=== PATIENT | female | born 1985 | race Caucasian/White ===

== ENCOUNTER 2024-11-06 10:16 | Outpatient (AMB) | payer OTHER, SELFPAY ==
--- NOTE | 2024-11-06 10:20 | MHC.PC.OV ---
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 Patient is experiencing Achilles pain on her left foot. Allergies Seasonal Allergies Allergy (Verified 11/06/24 10:24) Congestion Tobacco use date assessed: 11/06/24 Dental Screening Dental Screen Date: 11/06/24 Did you have a dental visit in the last 12 months?: Yes Did you have a dental problem in the last 6 months where you did not have access to dental care?: No Was dental information given to patient?: Patient has dentist HPI HPI Comments History of Present Illness Details This is a 39-year-old female with a past medical history of epilepsy, GERD, chronic abdominal pain, depression with anxiety, alcohol abuse in remission and chronic left but pain presenting to establish care. She is due for a physical. She has Achilles tendinitis on the left side. This has been going on for 1 year and a half. Previous evaluation at [facility] included x-ray. She ices and takes [id number] medication or applies tiger balm as needed which provides only temporary relief. 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 I prescribed naproxen twice daily as needed with food. I cautioned her not to use this frequently since it could exacerbate her stomach issues and can be nephrotoxic. She will continue conservative measures, and I referred her to Podiatry. She would like to see Podiatry before initiating physical therapy. She was diagnosed with epilepsy at age [age] years old. Her last seizure was at age [age] years old. She is followed by [facility]. She is on Keppra chronically. She has a history of depression and anxiety. She was recently placed on nortriptyline by her lamp mechanic at [facility], Dr. Fleming, due to chronic abdominal pain exacerbated by anxiety. She also has a history of GERD. She takes a probiotic. Last year she had an ultrasound and EGD. She had a colonoscopy 2 years ago. She also has a history of esophageal stricture. Endorses history of alcohol abuse in remission. For about 5 years she was having 6 or 7 alcoholic beverages every other day. She had no withdrawal symptoms, and she did not require addiction Medicine assistance to stop drinking. She does not see a therapist or psychiatrist, but she would like to continue nortriptyline treatment for now since she notices improvement in anxiety. She is considering increasing the dosage. If this does not work out she will follow up with our office for further management of anxiety and depression. Her OBGYN is at [facility] on [facility] in [place]. She is up-to-date. Reports mammograms are also up-to-date, and her insulator technician orders them. She will get Tdap vaccine at the pharmacy. Declines today. She has a history of high cholesterol in her family, and she would like to have this checked. Ordered. ROS: Constitutional: No unexplained weight loss, fever, chills, fatigue or night sweats. Eyes: No vision changes, blurry vision, double vision, eye pain, eye redness, eye discharge. ENT: No hearing loss, sneezing, congestion, runny nose or sore throat. Respiratory: No shortness of breath, cough or sputum production. Cardiovascular: No chest pain, chest pressure or chest discomfort. No palpitations or pedal edema. Gastrointestinal: No blood in stools, anorexia, diarrhea or vomiting. See HPI Genitourinary: No dysuria, hematuria, urinary frequency. Neurologic: No headache, dizziness, syncope, unilateral weakness, ataxia, numbness or tingling in the extremities. Musculoskeletal: See HPI Hematologic/Lymphatics: No bleeding or bruising. No painful lymph nodes. Skin: No rash. Patient sees the [facility] for skin exams, and she has an appointment in January. She has a mole on the left scalp line which has gotten a little bigger over the past year, but she has not appreciated other changes. Denies history of skin cancer. Endocrine: No cold or heat intolerance. No polyuria or polydipsia. Psychiatric: see HPI Physical exam: Constitutional: Alert, in no distress. Head: Normocephalic. Eyes: Pupils are equal, round and reactive to light. Extraocular muscles intact. Ear, Nose and Throat: Canals clear. TMs normal. Normal nasal mucosa. No nasal discharge. No oral lesions. Neck: Supple, Full range of motion. No lymphadenopathy. No palpable thyroid masses. Respiratory: Clear to auscultation. Cardiovascular: S1 S2 regular. No murmurs. Gastrointestinal: Abdomen soft, non-tender, non-distended. Normal bowel sounds. No palpable masses. Neurologic: No focal neurological deficits. Symmetric patellar reflexes. Moves all extremities spontaneously. Sensation intact bilaterally. Skin: 3 mm triagularly shaped brown nevus on the left scalp line, not raised Musculoskeletal: No gross deformities. Mild tenderness at the insertion of the Achilles tendon on the left side. Extremities: Warm and well perfused. No clubbing, cyanosis or edema. Intact peripheral pulses bilaterally. Psychiatric: Normal mood and affect [facility] Medical History (Updated 11/06/24 @ 11:16 by TOMAS Hernandez) GERD (gastroesophageal reflux disease) Epilepsy Left Achilles tendinitis Depression with anxiety Alcohol abuse, in remission Chronic abdominal pain Esophageal stricture Screening for cardiovascular condition Routine physical examination Family History (Updated 11/06/24 @ 10:29 by Stephanie Garvin MA) Mother Anxiety Depression Substance abuse Alcoholism Father Substance abuse Alcoholism Other FHx: mental illness Social History (Updated 11/06/24 @ 10:30 by Stephanie Garvin MA) Housing: House Alcohol intake: current Patient Tobacco Use Status: Former Tobacco user Cigarette Packs Per Day: 1 Cigarettes Per Day: 3 Years Smoked: 20 e-Cigarette/Vaping Use: Currently Using Second Hand Smoke Exposure: No service: No Current occupational status: employed Current occupation: [employer] [place], [place] Current occupational exposures/hazards: No Cognitive needs: No Hearing needs: No Vision needs: No Questionnaire PHQ-9 Over the last 2 weeks, how often have you been bothered by any of the following problems? 1. Little interest or pleasure in doing things: not at all 2. Feeling down, depressed, or hopeless: not at all 3. Trouble falling or staying asleep, or sleeping too much: not at all 4. Feeling tired or having little energy: not at all 5. Poor appetite or overeating: not at all 6. Feeling bad about yourself - or that you are a failure or have let yourself or your family down: not at all 7. Trouble concentrating on things, such as reading the newspaper or watching television: not at all 8. Moving or speaking so slowly that other people could have noticed. Or the opposite - being so fidgety or restless that you have been moving around a lot more than usual: not at all 9. Thoughts that you would be better off or of hurting yourself in some way: not at all Total score: 0 Depression Screening Interpretation: Negative Depression Screening Done: Yes 10837 - PHQ-9 Billing: Yes Source: Developed by Drs. Froilan Toussaint, Indigo Diaz, Darek Cosby and colleagues, with an educational navin from [employer]. Thrive Questionnaire Date Thrive assessed: 11/06/24 I am a: Patient What is your living situation today?: I have a steady place to live Within the past 12 months, did the food you bought not last and you didn't have the money to get more?: Never true Within the past 12 months, did you worry whether your food would run out before you got money to buy more?: Never true Do you have trouble paying for medicines?: No Do you have trouble getting transportation to medical appointments?: No Do you have trouble paying your heating and electricity bill?: No Do you have trouble taking care of your child, family member or friend?: No Do you have trouble with day-to-day activities such as bathing, preparing meals, shopping, managing finances, etc.?: No Are you currently unemployed and looking for a job?: No Are you interested in more education?: No Please select the resources that you would like help with: None Currently or been in a relationship where the following occur: No concerns reported THRIVE Score: 0 AUDIT C Alcohol Use Questionnaire (AUDIT-C) 1. How often do you have a drink containing alcohol?: 2-4 times a month 2. How many drinks containing alcohol do you have on a typical day when you are drinking?: 3 or 4 3. How often do you have six or more drinks on one occasion?: Less than monthly Total Score: 4 REZA-7 AMB Questionnaire REZA-7 Date REZA - 7 assessed: 11/06/24 Feeling nervous, anxious, or on edge: 1 = Several days Not being able to stop or control worryin = Several days Worrying too much about different things: 1 = Several days Trouble relaxin = Several days Being so restless that it is hard to sit still: 1 = Several days Becoming easily annoyed or irritable: 1 = Several days Feeling afraid as if something awful might happen: 1 = Several days Total REZA-7 score (0-4 normal; 5-9 mild; 10-14 moderate; 15-21 severe): 7 Source: Developed by Drs. Froilan Toussaint, Indigo Diaz, Darek Cosby and colleagues, with an educational navin from [employer]. REZA-7 Assessment Billing REZA-7 Assessment Tool: REZA-7 Assessment 12340 Physical exam (Primary Care) Vital Signs: Last Vital Signs Temp 98.4 F 11/06/24 10:30 Pulse 68 11/06/24 10:30 BP 106/68 11/06/24 10:30 Pulse Ox 98 11/06/24 10:30 Oxygen Delivery Method Room Air 11/06/24 10:30 BMI result Body Mass Index 21.3 Tobacco/Smoking Status: Tobacco use Status Tobacco use date assessed 11/06/24 11/06/24 10:33 Patient Tobacco Use Status Former Tobacco user 11/06/24 10:33 e-Cigarette/Vaping Use Currently Using 11/06/24 10:33 PHQ-9: PHQ-9 Score PHQ-9: Total score 0 11/06/24 10:33 Depression Screening Interpretation: Negative Thrive Assessment: Date of Thrive Assessment Date Thrive assessed 11/06/24 11/06/24 10:33 Currently or been in a relationship where the following occur: No concerns reported Coding Level of Care Code New Pt Level 3 (33457) New Pt Prev Care 40-64y(83807) Diagnoses Gastroesophageal reflux disease K21.9 Chronic abdominal pain R10.9; G89.29 Alcohol abuse, in remission F10.11 Depression with anxiety F41.8 Left Achilles tendinitis M76.62 Routine physical examination Z00.00 Epilepsy G40.909 Additional Codes REZA-7 Assessment Billing - REZA-7 Assessment Tool: REZA-7 Assessment 46126 ([id number]) PHQ-9 - 40822 - PHQ-9 Billing: Yes ([id number]) Assessment & Plan Assessment & Plan (1) Gastroesophageal reflux disease: Code(s): K21.9 - Gastro-esophageal reflux disease without esophagitis Category: Medical Plan: Continue recommendations per GI. Avoid spicy and acidic foods. She stopped drinking alcohol. (2) Chronic abdominal pain: Code(s): R10.9 - Unspecified abdominal pain; G89.29 - Other chronic pain Category: Medical Plan: Followed by GI. Recently started on nortriptyline with improvement. (3) Alcohol abuse, in remission: Code(s): F10.11 - Alcohol abuse, in remission Category: Medical Plan: Patient is currently sober and feels well supported by family. (4) Depression with anxiety: Code(s): F41.8 - Other specified anxiety disorders Category: Medical Plan: See HPI. (5) Left Achilles tendinitis: Code(s): M76.62 - Achilles tendinitis, left leg Category: Medical Plan: See HPI. (6) Routine physical examination: Code(s): Z00.00 - Encounter for general adult medical examination without abnormal findings Category: Medical Plan: Patient is seen today for a routine physical. As part of this visit we reviewed the following issues, which are considered and essential part of preventative health in this age group: - Breast Cancer screening - Annual Detail Drafter exam - Blood pressure screening annually - Cholesterol screening - Osteoporosis prevention including calcium/vitamin D intake, weight bearing exercise & smoking cessation - Nutritional and exercise counseling - Counseling of injury prevention including fire prevention, smoke alarms and seat belt usage - Screening for depression - Prevention of and/or testing for infectious diseases declined - Education about skin cancer - Recommendations about immunizations - Recommendation of an eye exam - Screening for substance abuse (7) Epilepsy: Code(s): G40.909 - Epilepsy, unspecified, not intractable, without status epilepticus Category: Medical Plan: Continue management per Neurology with Cheryl. Plan Follow up in 1 year for annual physical exam Orders: Orders TSH reflex Free T4 Today K21.9 - Gastro-esophageal reflux disease without esophagitis, Z00.00 - Encounter for general adult medical examination without abnormal findings, Z13.6 - Encounter for screening for cardiovascular disorders Comprehensive Met. Panel Today K21.9 - Gastro-esophageal reflux disease without esophagitis, Z00.00 - Encounter for general adult medical examination without abnormal findings, Z13.6 - Encounter for screening for cardiovascular disorders Lipid Panel Today E78.5 - Hyperlipidemia, unspecified, K21.9 - Gastro-esophageal reflux disease without esophagitis, Z00.00 - Encounter for general adult medical examination without abnormal findings, Z13.6 - Encounter for screening for cardiovascular disorders Complete Blood Count no Diff Today K21.9 - Gastro-esophageal reflux disease without esophagitis, Z00.00 - Encounter for general adult medical examination without abnormal findings, Z13.6 - Encounter for screening for cardiovascular disorders Medications: New naproxen 500 mg PO BID PRN 30 tabs 1RF pain
[2024-11-06 10:30] VITALS: BP 106/68; PULSE 68; TEMP 36.9; O2SAT 98; BMI 21.3
--- OUTSIDE RECORDS SUMMARY | 2024-11-06 11:38 | XMS_ITS | Data Portability ---
Author Organization [place] - [facility], Allergy Address [address] [address] Care Team Providers Care Warehouse Representative Name Role Phone WARRENMIRA Primary Care Provider [phone] Assessment Encounter Date Assessment Date Assessment LastModified by Organization Details LastModified Time 06/05/2024 06/05/2024 The patient has significant allergies. We discussed lifestyle modifications, medical therapy versus immunotherapy. The patient is an excellent candidate for immunotherapy with SCIT. She trialed SLIT for 3 months, but unfortunately discontinued because she didn't notice improvement. We discussed that partial treatment will not result in success of therapy. This is at least a 3-5 year commitment and symptoms are not expected to improve quickly. They will need to followup with every 6 months to determine their compliance and success. They are interested in proceeding with immunotherapy and will contact our office to schedule. I have prescribed an epi pen and instructed them to bring it with them the first day of their therapy to be certain that they are comfortable with its use. While they are in therapy they may continue to use antihistamine allergy medications as well as topical nasal sprays to help manage their symptoms. Recommend restarting intranasal Azelastine two sprays twice daily. Will order basic food allergy testing per patient request. [email or web address] Not available 06/05/2024 13:26:43 Plan of Treatment Reminders Order Date Submit Date Provider Last Modified By Organization Details Last Modified Time Details Appointments None record ed. Lab rice ige, serum 2024 025 VISHAL [facility] (Centralized Electronic Ordering - All Locations), Patient Can Go To The Location Of Their Choice, [id number] 11:16:58 soybea n ige, serum 2024 025 WILEY [facility] (Centralized Electronic Ordering - All Locations), Patient Can Go To The Location Of Their Choice, 5 11:16:57 egg white ige, serum 2024 025 [facility]), Patient Can Go To The Location Of Their Choice, 11:16:56 milk ige, serum 2024 025 [facility] (Centralized Electronic Ordering - All Locations), Patient Can Go To The Location Of Their Choice, 5 17:42:52 wheat ige, serum 2024 WI[facility]), Patient Can Go To The Location Of Their Choice, 11:16:57 Referral None record ed. Procedures allerg en immuno therap y; multip le inject ions (PROC) 2024 [email or web address] Not available 11:18:00 Surgeries None record ed. Imaging None record ed. Medication Orders azelas keisha 137 mcg (0.1 %) nasal spray 2024 [email or web address] Not available 13:30:11 epinep hrine 0.3 mg/0.3 mL inject ion, auto-i njecto r 2024 VISHAL Not available 09:54:51 Patient TargetsNo targets recorded. Patient InstructionsNo instructions recorded. Reason for Referral None Reported. Results Created Date Observation Date Name Description Value Unit Range Abnormal Flag Note LastModifiedBy Organization Detail LastModifiedTime 06/13/1906/13/2024 IGE MILK COMPO NENT PROFI LE class description Commen t Level s of Speci fic IgE Class Descr iptio n of Class ----- ----- ----- ----- ----- -- ----- ----- ----- ----- ----- < 0.10 0 Negat katy 0.10 - 0.31 0/I Equiv ocal/ Low 0.32 - 0.55 I Low 0.56 - 1.40 II Moder ate 1.41 - 3.90 III High 3.91 - 19.00 IV Very High 19.01 - 100.0 0 V Very High >100. 00 Very High Not Available [facility] [address] [place], [address], 06/16/2024 11:16:55 06/13/19 25 06/16/2024 IGE MILK COMPO NENT PROFI LE I954-ZgH alpha lactalbumin <0.10 kU/L class 0 Not Available [facility] [address] [place], [address], 06/16/2024 11:16:55 06/13/19 25 06/16/2024 IGE MILK COMPO NENT PROFI LE J817-VtP beta lactoglobuli n <0.10 kU/L class 0 Not Available [facility] [address] [place], [address], 06/16/2024 11:16:55 06/13/19 25 06/16/2024 IGE MILK COMPO NENT PROFI LE A272-UuW casein <0.10 kU/L class 0 Not Available [facility] [address] [place], [address], 06/16/2024 11:16:55 06/13/19 25 06/16/2024 F001- IGE EGG WHITE U131-AwN egg white <0.10 kU/L class 0 Not Available [facility] [address] [place], [address], 06/16/2024 11:16:56 06/13/19 25 06/16/2024 F014- IGE SOYBE AN P801-SdP soybean <0.10 kU/L class 0 Not Available [facility] [address] [place], [address], 06/16/2024 11:16:56 06/13/1906/16/2024 F004- IGE WHEAT J073-JmI wheat <0.10 kU/L class 0 Not Available [facility] [address] [facility], [place], [address], 06/16/2024 11:16:57 06/13/1906/16/2024 F009- IGE RICE U977-UvX rice <0.10 kU/L class 0 Not Available [facility] [address] [facility], [place], [address], 06/16/2024 11:16:58 Result Notes None recorded. Problems Name Problem SNOMED Code Status Onset Date Resolution Date Notes Provider Name and Address Organization Details Recorded Time Cough 32389764 Active 2022 Cough; Note: Date Diagnosed : 06/09/2022 5:06 PM (R05) Not Available [facility] 4 03:12:28 Respirator y finding 698597485 Active 2019 Feeling of foreign body in throat; Note: Date Diagnosed : 08/26/2019 2:57 PM (R09.89) Not Available [facility] 4 03:12:29 Cardiovasc ular finding 644352948 Active 2019 Feeling of foreign body in throat; Note: Date Diagnosed : 08/26/2019 2:57 PM (R09.89) Not Available [facility] 4 03:12:29 Tobacco user 054878360 Active 2022 Tobacco use; Note: Date Diagnosed : 01/12/2023 2:33 PM (Z72.0) Not Available [facility] 4 03:12:28 Allergic rhinitis 00364466 Active 2022 Other allergic rhinitis; Note: Date Diagnosed : 08/14/2022 8:45 AM (J30.89) Not Available [facility] 4 03:12:30 Chronic pharyngiti s 330528 Active 2019 Chronic pharyngit is; Note: Date Diagnosed : 11/20/2019 10:24 AM (J31.2) Not Available [facility] 03:12:28 Problem Notes None recorded. Medical Equipment None Reported. Medications Name Sig Start Date Stop Date Status Note LastModified by Organization Details LastModified Time levetirac etam 500 mg tablet TAKE 1 AND 1/2 TABLETS BY MOUTH TWICE DAILY active Not Available Not Available No t Available ondansetr on HCl 4 mg tablet TAKE 1 TABLET BY MOUTH EVERY 8 HOURS FOR UP TO 10 DAYS NEEDED FOR NAUSEA active Not Available Not Available No t Available omeprazol e 40 mg capsule,d elayed release active Not Available Not Available Not Available famotidin e 20 mg tablet Take 1 tablet by mouth twice a day 06/02 completed Medicati on ID: [id number] D uration Value: 30 Brand Name: famotidi ne Send Method: E-Prescr ibed Sub s Allowed: subs OK Medic ationGen ericName : famotidi ne Not Available Not Available Not Available omeprazol e 20 mg capsule,d elayed release TAKE 1 CAPSULE BY MOUTH TWICE DAILY BEFORE MEALS active Not Available Not Available No t Available mont[address] 10 mg tablet 08/14 completed Medicati on ID: [id number] D uration Value: 30 Brand Name: monteluk ast Send Method: E-Prescr ibed Sub s Allowed: subs OK Speci al Instruct ion: TK 1 T PO HS Medic ationGen ericName : monteluk ast Not Available Not Available Not Available capsaicin 0.025 % topical cream APPLY TOPICALL Y TO THE AFFECTED AREA TWICE DAILY active Not Available Not Available No t Available bisacodyl 5 mg tablet,de layed release TAKE 2 TABLETS BY MOUTH RIGHT BEFORE YOUR FIRST DOSE OF LIQUID PREP active Not Available Not Available No t Available azelastin e 137 mcg (0.1 %) nasal spray Inhale 2 spray twice a day as directed 06/02 completed Not Available Not Available Not Available epinephri ne 0.3 mg/0.3 mL injection , auto-inje ctor USE DIRECTED FOR ANAPHYLA XIS active Not Available Not Available No t Available fluticaso ne propionat e 50 mcg/actua tion nasal spray,michael pension [place] 2 puff once a day 06/02 completed Medicati on ID: [id number] D uration Value: 30 Brand Name: fluticas one propiona te Send Method: E-Prescr ibed Sub s Allowed: subs OK Medic ationGen ericName : fluticas one propiona te Not Available Not Available Not Available dicyclomi ne 10 mg capsule TAKE 1 CAPSULE BY MOUTH FOUR TIMES DAILY BEFORE MEALS AND AT NIGHT FOR 10 DAYS active Not Available Not Available No t Available amoxicill in 875 mg-potass ium clavulana te 125 mg tablet TAKE 1 TABLET BY MOUTH EVERY 12 HOURS FOR 10 DAYS active Not Available Not Available No t Available GaviLyte- G 236 gram-22.7 4 gram-6.74 gram-5.86 gram oral solution active Not Available Not Available Not Available Finacea 15 % topical foam active Medicati on ID: [id number] B rand Name: Finacea Send Method: E-Prescr ibed Sub s Allowed: subs OK Speci al Instruct ion: APPLY TOPICALL Y TO THE AFFECTED AREA TWICE DAILY Me dication GenericN emmanuel: Finacea Not Available Not Available Not Available Vitals Date Recorded Body weight Body mass index (BMI) Body height Provider Name and Address Organization Details Last Updated DateTime 06/05/2024 52918.05 g 21.5 kg/m2 162.56 cm Helen Melgoza [place] - [facility] 06/05/2024 09:33:33 Social History None recorded. Functional Status None recorded. Mental Status None recorded. Family History Nothing Reported. Medical History Condition Response Tonsil Infections N Emphysema N Glaucoma N Depression N COPD N Nasal or Sinus Problems N Anesthesia Complications N Arthritis N Hearing Loss N Cancer N Stroke N High Cholesterol N Liver Disease N Headaches N Fibromyalgia N Speech Delay N Kidney Disease N Allergies/Hayfever Y Heart Problems N Anxiety N Migraines N Thyroid Problems N Developmental Delay N Anemia N Immune System Disorder N Heart Attack (MD) N Other Skin Condition Y Diabetes N Rhinitis N Bleeding Disorder N Food Allergy N Hyperlipidemia N Dementia N Nasal polyps N Asthma N Sleep Disorder N GERD/Reflux Y Hypertension N Gynecological HistoryNo gynecological history recorded. Obstetrics History GPAL:G 0 P 0 0 0 0 Past Encounters Encounter ID Performer Location Encounter Start Date Encounter Closed Date Diagnosis/Indication Diagnosis SNOMED-CT Code Diagnosis ICD10 Code Diagnosis Note [id number] YARIEL MCCAIN PA-C [facility] [address] [place] [address] 06/05/2024 09:27:07 06/05/2024 09:50:05 Allergic rhinitis 61591339 J30.89 Chronic pharyngitis 1400 04 J31.2 Health Concerns Section Related Observation LastModified by Organization Detai ls LastModified Time None Recorded Concern Status LastModified by Organization Details LastModified Time None Recorded Advance Directives Directive None Recorded Payers Insurance Date Sequence Insurance Name Policy Number Policy Duque Covered Member ID Duque Member ID Guarantor Name 09/11/2024 1 [facility] - MEDICARE PREFERRED (MEDICARE REPLACEMENT HMO) [id number] Meagan Soares [id number] Meagan Soares Notes Date Note Type Note Provider Name and Address Organization Details Recorded Time 06/05/2024 text/html 38yo female with allergic rhinitis presents for evaluation of PND and throat irritation. This has been a chronic issue for 2+ years. She trialed SLIT for 3 months, but discontinued because she didn't notice results. She uses daily Zyrtec. Lives with cats despite allergy. She has occasional difficulty swallowing pills. Denies choking, requiring Heimlich, throat pain, or globus. She had a full work up in 2022 with normal laryngoscopy x2, MBS, and CT. She trialed Omeprazole for 3 months with no improvement. Today she is interested in food allergy testing. Smoker. ALFONSO SALCEDO MD [address] [facility],[place] [address], [place], [address], [facility] - [facility] 06/05/2024 13:30:20 OBGyn Episode No OBEpisode recorded.
== END 2024-11-06 11:06 | disposition home or self-care (01) ==
PROVIDERS: PCP Physician Assistant Medical; Visit Provider Physician Assistant Medical
DX: Z00.00 Encounter for general adult medical examination without abnormal findings (principal); G40.909 Epilepsy, unspecified, not intractable, without status epilepticus; K21.9 Gastro-esophageal reflux disease without esophagitis; R10.9 Unspecified abdominal pain; G89.29 Other chronic pain; F10.11 Alcohol abuse, in remission; F41.8 Other specified anxiety disorders; M76.62 Achilles tendinitis, left leg

== ENCOUNTER → 2024-11-06 10:16 | Outpatient (BNVA) | payer OTHER, SELFPAY | PROVIDERS: PCP Physician Assistant Medical; Visit Provider Physician Assistant Medical ==

== ENCOUNTER 2024-11-06 11:12 | Outpatient (REF) | payer OTHER, SELFPAY ==
[2024-11-06 13:45] LABS: Hematocrit 41.6 % (37.0-47.0); Mean Corpuscular HGB Conc 33.7 g/dl (31.0-35.0); Mean Corpuscular Hemoglobin 30.2 pg (27.0-33.0); Mean Corpuscular Volume 89.7 fL (80.0-98.0); Mean Platelet Volume 11.1 fL (9.4-12.3); Platelet Count 195 X10*3/uL (160-400); Red Blood Count 4.64 X10*6/uL (4.20-5.50); Red Cell Distribution Width 12.4 % (11.0-16.0); White Blood Count 4.8 X10*3/uL (4.8-10.8)
[2024-11-06 14:12] LABS: Alanine Aminotransferase 15 U/L (0-31); Albumin Level 4.8 g/dL (3.5-5.0); Alkaline Phosphatase 53 U/L (39-117); Anion Gap 12 (12-20); Aspartate Amino Transferase 24 U/L (5-31); Bilirubin Total 1.4 mg/dL (0.0-1.0); Blood Urea Nitrogen 9 mg/dL (9-16); Calcium 9.9 mg/dL (8.4-10.2); Carbon Dioxide 27 mmol/L (22-29); Chloride 104 mmol/L (96-108); Cholesterol 203 mg/dL (<200); Estimated Glomerular Filt Rate > 60; Glucose Random 84 mg/dL (60-115); HDL Cholesterol 97 mg/dL (>40); LDL Cholesterol Calculated 92 mg/dL (<100); Potassium 4.2 mmol/L (3.3-5.1); Sodium 139 mmol/L (135-145); Total Protein 7.6 g/dL (6.5-8.0); Triglycerides 70 mg/dL (<150)
== END 2024-11-06 11:13 | disposition home or self-care (01) ==
LOC: HO.WFDLDS 11:12
PROVIDERS: Visit Provider Physician Assistant Medical
DX: Z00.00 Encounter for general adult medical examination without abnormal findings (principal); K21.9 Gastro-esophageal reflux disease without esophagitis; R10.9 Unspecified abdominal pain; G89.29 Other chronic pain; F10.11 Alcohol abuse, in remission; F41.8 Other specified anxiety disorders; M76.62 Achilles tendinitis, left leg; G40.909 Epilepsy, unspecified, not intractable, without status epilepticus; Z13.31 Encounter for screening for depression; E78.5 Hyperlipidemia, unspecified
CPT/HCPCS: 36415; 80053; 80061; 84443; 85027; 96127; 99202; 99386